=== PATIENT | female | born 1965 | race African-American/Black ===

== ENCOUNTER 2021-08-18 16:59 | Inpatient (IN) ==
[2021-08-18 18:14] LABS: Alanine Aminotransferase 22 U/L (13-56); Albumin 3.4 G/DL (3.4-5.0); Alkaline Phosphatase 69 U/L (45-117); Aspartate Amino Transferase 13 U/L (0-37); Basophils % 0.3 % (0.0-0.8); Bilirubin,Total < 0.39 MG/DL (0.20-1.00); Blood Urea Nitrogen 19 MG/DL (7-18); Calcium 8.6 MG/DL (8.5-10.1); Carbon Dioxide 24 MMOL/L (21-32); Chloride 113 MMOL/L (98-107); Eosinophils # 0.1 10*3/uL (0.0-0.87); Eosinophils % 1.9 % (0.00-10.9); Glucose 102 MG/DL (74-106); Hematocrit 36.7 VOL% (35.7-47.0); Hemoglobin 12.5 GM/DL (12.0-16.0); Immature Granulocytes % 0.3 %; Immature Granulocytes Absolute 0.02 #; Lymphocytes # 1.9 10*3/uL (1.4-4.0); Lymphocytes % 28.2 % (21.3-54.2); Mean Corpuscular HGB Conc 34.1 GM/DL (32-36); Mean Corpuscular Volume 76.8 FL (87-102); Mean Platelet Volume 10.5 FL (9.6-12.0); Monocytes # 0.5 10*3/uL (0.11-0.8); Neutrophils % 61.3 % (38.7-73.9); Platelet Count 304 T/CUMM (130-400); Potassium 3.7 MMOL/L (3.5-5.1); Red Blood Count 4.78 MC/CUMM (3.8-5.5); Red Cell Distribution Width 17.8 % (9.3-17.3); Sodium 143 MMOL/L (136-145); Total Protein 6.6 G/DL (6.4-8.2); White Blood Count 6.8 T/CUMM (4-12)
[2021-08-18] MEDS ORDERED: MORPHINE 2 MG/1 ML SYRINGE IV STA ×2 (18:23→19:47)
[2021-08-18] MEDS ORDERED: hydrALAZINE 20 MG/1 ML VIAL IV STA (18:23)
[2021-08-18] MEDS ORDERED: ONDANSETRON 4 MG/2 ML VIAL IV ONE (18:23)
[2021-08-18] MEDS ORDERED: ONDANSETRON 4 MG/2 ML VIAL IV STA (19:48)
[2021-08-18] MEDS ORDERED: ACETAMINOPHEN 325 MG TABLET PO PRN (19:48)
[2021-08-18] MEDS ORDERED: hydrALAZINE 20 MG/1 ML VIAL IV PRN (19:48)
[2021-08-18] MEDS ORDERED: GLUCAGON 1 MG VIAL IM PRN (19:48)
[2021-08-18] MEDS ORDERED: ONDANSETRON 4 MG/2 ML VIAL IV PRN (19:48)
[2021-08-18] MEDS ORDERED: ASPIRIN CHEW 81 MG TABLET PO ONE (20:14)
[2021-08-18] MEDS ORDERED: DEXTROSE 10% 250 ML BAG IV PRN (20:37)
[2021-08-18] MEDS ORDERED: IBUPROFEN 800 MG TABLET PO STA (20:46)
[2021-08-18] MEDS ORDERED: IBUPROFEN 800 MG TABLET PO PRN (20:46)
[2021-08-18] MEDS: LOSARTAN 50 MG TABLET PO SCH (21:12)
[2021-08-18] MEDS: amLODIPine 10 MG TABLET PO SCH (21:12)
[2021-08-18] MEDS: cloNIDine 0.1 MG TABLET PO SCH (21:12)
[2021-08-18] MEDS: DOCUSATE SODIUM 100 MG CAPSULE PO SCH (21:12)
[2021-08-18] MEDS: methylPREDNISolone SOD SUC 40 MG/1 ML VIAL IV SCH (21:13)
[2021-08-18 21:21] LABS: Urine Appearance Clear (Clear); Urine Color Yellow (Yellow); Urine Specific Gravity >= 1.030 (1.001-1.035); Urine pH 5.5 (4.5-8.0)
[2021-08-18 21:22] LABS: Bilirubin,Urine Negative (Negative); Blood, Urine Small mg/dL (Negative); Glucose,Urine (UA) Negative (Negative); Ketones,Urine Negative (Negative); Nitrite,Urine Negative (Negative); Protein,Urine Negative (Negative); Urine Urobilinogen 0.2 eU/dL (<2.0)
[2021-08-18 21:23] LABS: Mucus,Urine Occasional /LPF (Occasional); RBC,Urine 7 /HPF (0-4); Squamous Epithelial Cell,Urine Occasional /HPF (0-10)
[2021-08-18] MEDS: INSULIN REGULAR 100 UNIT/ML SUBCUT SCH (22:24)
[2021-08-19 02:12] LABS: Basophils % 0.2 % (0.0-0.8); Eosinophils % 0.1 % (0.00-10.9); Hematocrit 38.7 VOL% (35.7-47.0); Hemoglobin 12.9 GM/DL (12.0-16.0); Immature Granulocytes % 0.4 %; Immature Granulocytes Absolute 0.05 #; Lymphocytes # 0.7 10*3/uL (1.4-4.0); Lymphocytes % 5.3 % (21.3-54.2); Mean Corpuscular HGB Conc 33.3 GM/DL (32-36); Mean Corpuscular Volume 77.2 FL (87-102); Mean Platelet Volume 9.8 FL (9.6-12.0); Monocytes # 0.1 10*3/uL (0.11-0.8); Monocytes % 0.6 % (1.7-12.7); Neutrophils % 93.4 % (38.7-73.9); Platelet Count 304 T/CUMM (130-400); Red Blood Count 5.01 MC/CUMM (3.8-5.5); Red Cell Distribution Width 18.5 % (9.3-17.3); White Blood Count 12.6 T/CUMM (4-12)
[2021-08-19 02:22] LABS: INR 0.9; PT Patient Result 9.9 SECS (10.5-12.0); Partial Thromboplastin Time 28.2 SECS (23.7-32.9)
[2021-08-19 02:30] LABS: C-Reactive Protein HS Cardiac 0.48 MG/DL (0-0.3)
[2021-08-19 02:32] LABS: Hypochromia Slight; Lymphocytes 6 % (20-55); Platelet Estimate Normal; Total Cells Counted 100
[2021-08-19 02:37] LABS: Calcium 9.5 MG/DL (8.5-10.1); Osmolality,Calculated 286.5 MOS/KG (273-304); Potassium 4.3 MMOL/L (3.5-5.1); Risk Ratio 4.21; Thyroid Stimulating Hormone 2.04 uIU/ml (0.358-3.74); VLDL Cholesterol 44.2 MG/DL
[2021-08-19] MEDS: methylPREDNISolone SOD SUC 40 MG/1 ML VIAL IV SCH ×2 (04:45→14:00)
[2021-08-19] MEDS ORDERED: hydroCHLOROthiazide 25 MG TABLET PO SCH (08:00)
[2021-08-19] MEDS: cloNIDine 0.1 MG TABLET PO SCH ×2 (08:13→20:35)
[2021-08-19] MEDS: amLODIPine 10 MG TABLET PO SCH (08:13)
[2021-08-19] MEDS: LOSARTAN 50 MG TABLET PO SCH (08:13)
[2021-08-19] MEDS: DOCUSATE SODIUM 100 MG CAPSULE PO SCH ×2 (08:13→20:34)
[2021-08-19] MEDS: PANTOPRAZOLE 40 MG TABLET PO SCH (08:13)
[2021-08-19] MEDS: INSULIN REGULAR 100 UNIT/ML SUBCUT SCH ×4 (08:13→20:35)
[2021-08-19] MEDS: CLOPIDOGREL 75 MG TABLET PO SCH (08:13)
[2021-08-19] MEDS ORDERED: ASPIRIN EC 325 MG TABLET PO SCH (09:00)
[2021-08-19] MEDS: MORPHINE 2 MG/1 ML SYRINGE IV PRN ×2 (14:22→20:37)
[2021-08-19] MEDS: LACTATED RINGERS 1,000 ML IV SCH ×2 (14:22→23:45)
[2021-08-19] MEDS: ROSUVASTATIN 20 MG TABLET PO SCH (20:34)
[2021-08-19] MEDS: LIDOCAINE 5% PATCH TRANSDERM SCH (22:48)
[2021-08-19] MEDS: levETIRAcetam 500 MG TABLET PO SCH (22:48)
[2021-08-20] MEDS: LACTATED RINGERS 1,000 ML IV SCH ×3 (05:47→16:38)
[2021-08-20 06:27] LABS: Basophils % 0.1 % (0.0-0.8); Hematocrit 33.9 VOL% (35.7-47.0); Hemoglobin 11.3 GM/DL (12.0-16.0); Immature Granulocytes % 0.5 %; Immature Granulocytes Absolute 0.06 #; Lymphocytes # 1.5 10*3/uL (1.4-4.0); Lymphocytes % 11.1 % (21.3-54.2); Mean Corpuscular HGB Conc 33.3 GM/DL (32-36); Mean Corpuscular Volume 77.4 FL (87-102); Mean Platelet Volume 10.1 FL (9.6-12.0); Monocytes # 0.6 10*3/uL (0.11-0.8); Monocytes % 4.8 % (1.7-12.7); Neutrophils % 83.5 % (38.7-73.9); Platelet Count 281 T/CUMM (130-400); Red Blood Count 4.38 MC/CUMM (3.8-5.5); Red Cell Distribution Width 17.7 % (9.3-17.3); White Blood Count 13.3 T/CUMM (4-12)
[2021-08-20 06:44] LABS: Calcium 9.1 MG/DL (8.5-10.1); Osmolality,Calculated 290.3 MOS/KG (273-304); Potassium 4.2 MMOL/L (3.5-5.1)
[2021-08-20] MEDS: INSULIN REGULAR 100 UNIT/ML SUBCUT SCH ×4 (07:29→20:55)
[2021-08-20] MEDS: ASPIRIN EC 81 MG TABLET PO SCH (08:28)
[2021-08-20] MEDS: DOCUSATE SODIUM 100 MG CAPSULE PO SCH ×2 (08:28→20:55)
[2021-08-20] MEDS: levETIRAcetam 500 MG TABLET PO SCH ×2 (08:28→20:55)
[2021-08-20] MEDS: CLOPIDOGREL 75 MG TABLET PO SCH (08:28)
[2021-08-20] MEDS: cloNIDine 0.1 MG TABLET PO SCH ×2 (08:28→20:55)
[2021-08-20] MEDS: amLODIPine 10 MG TABLET PO SCH (08:28)
[2021-08-20] MEDS ORDERED: ALUM/MAG/SIMETH/LIDO VISC 1:1 30 ML BOTTLE PO ONE ×2 (08:33→08:53)
[2021-08-20] MEDS: LIDOCAINE 5% PATCH TRANSDERM SCH (08:34)
[2021-08-20] MEDS: PANTOPRAZOLE 40 MG TABLET PO SCH ×2 (08:35→20:55)
[2021-08-20] MEDS ORDERED: NITROGLYCERIN SL 0.4 MG TABLET SL ONE (08:36)
[2021-08-20] MEDS: MORPHINE 2 MG/1 ML SYRINGE IV PRN ×3 (08:44→21:00)
[2021-08-20] MEDS ORDERED: NITROGLYCERIN SL 0.4 MG TABLET SL PRN (08:54)
[2021-08-20] MEDS ORDERED: methylPREDNISolone SOD SUC 40 MG/1 ML VIAL IV SCH (09:00)
[2021-08-20] MEDS: SIMETHICONE CHEW 125 MG TABLET PO PRN (13:34)
[2021-08-20] MEDS: ROSUVASTATIN 20 MG TABLET PO SCH (20:55)
[2021-08-20] MEDS ORDERED: MAGNESIUM HYDROXIDE SUSP 30 ML UDCUP PO PRN (23:00)
[2021-08-21] MEDS: LACTATED RINGERS 1,000 ML IV SCH ×3 (00:42→15:06)
[2021-08-21 05:05] LABS: Basophils % 0.1 % (0.0-0.8); Eosinophils % 0.1 % (0.00-10.9); Hematocrit 32.8 VOL% (35.7-47.0); Immature Granulocytes % 0.4 %; Immature Granulocytes Absolute 0.05 #; Lymphocytes % 17.5 % (21.3-54.2); Mean Corpuscular HGB Conc 33.5 GM/DL (32-36); Mean Corpuscular Volume 77.7 FL (87-102); Mean Platelet Volume 10.2 FL (9.6-12.0); Monocytes # 0.5 10*3/uL (0.11-0.8); Monocytes % 4.4 % (1.7-12.7); Neutrophils % 77.5 % (38.7-73.9); Platelet Count 274 T/CUMM (130-400); Red Blood Count 4.22 MC/CUMM (3.8-5.5); Red Cell Distribution Width 17.7 % (9.3-17.3); White Blood Count 11.5 T/CUMM (4-12)
[2021-08-21 05:18] LABS: Calcium 8.8 MG/DL (8.5-10.1); Osmolality,Calculated 290.1 MOS/KG (273-304); Potassium 4.2 MMOL/L (3.5-5.1)
[2021-08-21] MEDS: INSULIN REGULAR 100 UNIT/ML SUBCUT SCH ×3 (07:16→16:24)
[2021-08-21] MEDS: cloNIDine 0.1 MG TABLET PO SCH (08:41)
[2021-08-21] MEDS: amLODIPine 10 MG TABLET PO SCH (08:42)
[2021-08-21] MEDS: ASPIRIN EC 81 MG TABLET PO SCH (08:42)
[2021-08-21] MEDS: CLOPIDOGREL 75 MG TABLET PO SCH (08:42)
[2021-08-21] MEDS: PANTOPRAZOLE 40 MG TABLET PO SCH (08:42)
[2021-08-21] MEDS: DOCUSATE SODIUM 100 MG CAPSULE PO SCH (08:43)
[2021-08-21] MEDS: levETIRAcetam 500 MG TABLET PO SCH (08:57)
[2021-08-21] MEDS: SIMETHICONE CHEW 125 MG TABLET PO PRN (08:58)
[2021-08-21] MEDS: LIDOCAINE 5% PATCH TRANSDERM SCH (08:58)
[2021-08-21] MEDS ORDERED: predniSONE 20 MG TABLET PO SCH (09:00)
[2021-08-21] MEDS: MORPHINE 2 MG/1 ML SYRINGE IV PRN (10:30)
[2021-08-21 12:38] VITALS: BP 161/95
== END 2021-08-21 18:33 | disposition home or self-care (01) | DRG 392 ==
LOC: EDSEX → N.TELES 16:59 → N.ED 16:59 → SUATTDRO 19:48 → N.TELES 21:26
PROVIDERS: ADMIT Internal Medicine; ATTEND Emergency Medicine